=== PATIENT | male | born 1960 | race African-American/Black ===

== ENCOUNTER 2017-03-20 22:34 | Emergency (ER) | payer MEDICAID ==
[~2017-03-20] VITALS: Ht 188 cm; Wt 81.8 kg
[~2017-03-20 22:34] MED LIST: GABA-290 PO
[2017-03-21] MEDS ORDERED: ONDANSETRON HCL 4MG/2ML VIAL IV STA (00:51)
[2017-03-21] MEDS ORDERED: MORPHINE SULFATE 4 MG/ML CPJ (NOT FOR IM USE) IV STA (00:51)
[2017-03-21] MEDS ORDERED: MORPHINE SULFATE 4 MG/ML CPJ (NOT FOR IM USE) IV ONE (01:45)
[2017-03-21 01:47] LABS: BASOPHILS % 0.8 % (0.0-2.0); EOSINOPHILS % 2.7 % (0.0-5.0); HEMATOCRIT. 41.8 % (42.0-52.0); HEMOGLOBIN. 13.7 g/dL (14.0-18.0); LYMPHOCYTES % 16.2 % (20.0-50.0); MEAN CORPUSCULAR HEMOGLOBIN 27.3 pg (28.0-32.0); MEAN CORPUSCULAR HGB CONC 32.8 g/dL (31.0-37.0); MEAN CORPUSCULAR VOLUME 83.1 fL (80.0-94.0); MEAN PLATELET VOLUME 9.5 fl (7.4-10.4); MONOCYTES % 5.1 % (2.0-8.0); NEUTROPHILS % 75.2 % (40.0-76.0); PLATELET 284 x1000/uL (130-400); RED BLOOD CELL COUNT 5.03 mill/uL (4.7-6.1); WHITE BLOOD COUNT 11.5 x1000/uL (4.5-11.0)
[2017-03-21 01:51] LABS: INR 0.9; PROTHROMBIN TIME 9.3 sec
[2017-03-21 01:52] LABS: CHLORIDE 99 mEq/L (98-107); INDEX HEMOLYSI 1 (1-3); INDEX ICTERIC 1 (1-4); INDEX LIPEMIC 1 (1-3)
[2017-03-21 02:03] LABS: ALANINE AMINOTRANSFERASE 13 IU/L (13-61); ALBUMIN 3.4 g/dL (3.4-5.0); ANION GAP 14; CALCIUM 9.3 mg/dL (8.5-10.1); CARBON DIOXIDE 24 mEq/L (21-32); UREA NITROGEN BLOOD 10 mg/dL (7-21); eGFR > 60 mL/min (>60)
[2017-03-21] MEDS ORDERED: SODIUM CHLORIDE 0.9% 2,000 ML IV ONE (02:30)
[2017-03-21] MEDS ORDERED: KETOROLAC 30MG/ML VIAL IV ONE (03:30)
[2017-03-21 04:31] VITALS: BP 149/88
== END 2017-03-21 05:25 | disposition home or self-care (01) ==
LOC: ER 22:35
DX: T87.89 Other complications of amputation stump (principal); Y84.8 Other medical procedures as the cause of abnormal reaction of the patient, or of later complication, without mention of misadventure at the time of the procedure; Y92.098 Other place in other non-institutional residence as the place of occurrence of the external cause; Z89.512 Acquired absence of left leg below knee; M85.862 Other specified disorders of bone density and structure, left lower leg; R71.8 Other abnormality of red blood cells; E11.65 Type 2 diabetes mellitus with hyperglycemia; Z89.521 Acquired absence of right knee; F17.210 Nicotine dependence, cigarettes, uncomplicated
CPT/HCPCS: 36415; 73560; 80053; 82962; 85025; 85610; 85651; 93971; 96361; 96374; 96375; 96376; 99285; J1885; J2270; J2405; J7030; Z7610

== ENCOUNTER 2017-03-26 13:33 | Emergency (ER) | payer MEDICAID ==
[~2017-03-26] VITALS: Ht 175.3 cm; Wt 82.0 kg
[2017-03-26] MEDS ORDERED: HYDROCODONE/ACETAMINOPHEN 10/325MG TABLET PO ONE (15:15)
[2017-03-26] MEDS ORDERED: MORPHINE SULFATE 2 MG/ML CPJ (NOT FOR IM USE) IV ONE (16:15)
[2017-03-26 16:33] LABS: BASOPHILS % 0.6 % (0.0-2.0); HEMATOCRIT. 40.3 % (42.0-52.0); HEMOGLOBIN. 13.4 g/dL (14.0-18.0); LYMPHOCYTES % 13.6 % (20.0-50.0); MEAN CORPUSCULAR HEMOGLOBIN 27.2 pg (28.0-32.0); MEAN CORPUSCULAR HGB CONC 33.2 g/dL (31.0-37.0); MEAN CORPUSCULAR VOLUME 82.1 fL (80.0-94.0); MEAN PLATELET VOLUME 8.7 fl (7.4-10.4); MONOCYTES % 6.3 % (2.0-8.0); NEUTROPHILS % 77.5 % (40.0-76.0); PLATELET 379 x1000/uL (130-400); RED BLOOD CELL COUNT 4.91 mill/uL (4.7-6.1); RED CELL DISTRIBUTION WIDTH 15.8 % (11.6-14.6); WHITE BLOOD COUNT 19.7 x1000/uL (4.5-11.0)
[2017-03-26] MEDS ORDERED: CEPHALEXIN 500MG CAPSULE PO ONE (16:45)
[2017-03-26] MEDS ORDERED: KETOROLAC 60MG/2ML VIAL IM ONE (17:00)
[2017-03-26 17:12] VITALS: BP 145/78
[2017-03-26] MEDS ORDERED: KETOROLAC 30MG/ML VIAL IV ONE (17:15)
== END 2017-03-26 18:05 | disposition left against medical advice (07) ==
LOC: ER 13:33
DX: T87.89 Other complications of amputation stump (principal); R07.9 Chest pain, unspecified; E11.9 Type 2 diabetes mellitus without complications; R00.0 Tachycardia, unspecified; I10 Essential (primary) hypertension; Z89.512 Acquired absence of left leg below knee; Z89.611 Acquired absence of right leg above knee; D72.829 Elevated white blood cell count, unspecified; Y83.5 Amputation of limb(s) as the cause of abnormal reaction of the patient, or of later complication, without mention of misadventure at the time of the procedure; Y92.018 Other place in single-family (private) house as the place of occurrence of the external cause
CPT/HCPCS: 36415; 85025; 85651; 86140; 93005; 96374; 96375; 99285; J1885; J2270; Z7610

== ENCOUNTER 2017-03-27 14:50 | Emergency (ER) | payer MEDICAID ==
[~2017-03-27] VITALS: Ht 157.5 cm; Wt 82.0 kg
[~2017-03-27 14:50] MED LIST changes: +INSULIN DETEMIR UD 100 UNITS/ML SYR SUBCUT SCH
[2017-03-27] MEDS ORDERED: ONDANSETRON HCL 4MG/2ML VIAL IV STA (18:08)
[2017-03-27] MEDS ORDERED: MORPHINE SULFATE 4 MG/ML CPJ (NOT FOR IM USE) IV STA (18:08)
[2017-03-27] MEDS ORDERED: SODIUM CHLORIDE 0.9% 1000ML BAG (SEPSIS BOLUS) IV ONE (18:15)
[2017-03-27] MEDS ORDERED: PIPERACILLIN SODIUM/TAZOBACTAM 4.5 G in DEXT 5% WATER 100 ML IV ONE (18:15)
[2017-03-27] MEDS ORDERED: VANCOMYCIN 1 G PREMIX 200 ML IV ONE (18:15)
[2017-03-27 18:35] LABS: BASOPHILS % 0.9 % (0.0-2.0); EOSINOPHILS % 2.2 % (0.0-5.0); HEMATOCRIT. 40.4 % (42.0-52.0); HEMOGLOBIN. 13.1 g/dL (14.0-18.0); LYMPHOCYTES % 13.4 % (20.0-50.0); MEAN CORPUSCULAR HEMOGLOBIN 26.7 pg (28.0-32.0); MEAN CORPUSCULAR VOLUME 82.3 fL (80.0-94.0); MEAN PLATELET VOLUME 8.7 fl (7.4-10.4); MONOCYTES % 5.3 % (2.0-8.0); NEUTROPHILS % 78.2 % (40.0-76.0); PLATELET 401 x1000/uL (130-400); RED BLOOD CELL COUNT 4.91 mill/uL (4.7-6.1); RED CELL DISTRIBUTION WIDTH 15.9 % (11.6-14.6)
[2017-03-27 18:40] LABS: INR 0.9; PROTHROMBIN TIME 9.4 sec
[2017-03-27 18:48] LABS: CARBON DIOXIDE 26 mEq/L (21-32); CHLORIDE 100 mEq/L (98-107)
[2017-03-27] MEDS ORDERED: MORPHINE SULFATE 4 MG/ML CPJ (NOT FOR IM USE) IV ONE (20:15)
[2017-03-27] MEDS ORDERED: ONDANSETRON HCL 4MG/2ML VIAL IV PRN (21:30)
[2017-03-27] MEDS ORDERED: ACETAMINOPHEN 325MG TABLET PO PRN (21:30)
[2017-03-27] MEDS ORDERED: GUAIFENESIN 200MG/10ML SUGAR FREE UDC PO PRN (21:30)
[2017-03-27] MEDS ORDERED: DOCUSATE SODIUM 100MG CAPSULE PO PRN (21:30)
[2017-03-27] MEDS ORDERED: CLONIDINE 0.1MG TABLET PO PRN (21:30)
[2017-03-27] MEDS ORDERED: PIPERACILLIN/TAZ 3.375G PREMIX 50 ML IV SCH (21:30)
[2017-03-27] MEDS ORDERED: LORAZEPAM 2MG/ML CPJ IV PRN (21:30)
[2017-03-27] MEDS ORDERED: MAGNESIUM/ALUMINUM HYDROXIDE/SIMETHICONE 30ML UDC PO PRN (21:30)
[2017-03-27] MEDS ORDERED: VANCOMYCIN 1 G PREMIX 200 ML IV SCH (21:30)
[2017-03-27] MEDS ORDERED: DIPHENHYDRAMINE 50MG/ML VIAL IV PRN (21:30)
[2017-03-27] MEDS ORDERED: IPRATROPIUM/ALBUTEROL 0.5-3(2.5)MG/3ML NEB INH PRN (21:30)
[2017-03-27] MEDS ORDERED: LEVOFLOXACIN 500MG PREMIX 100 ML IV SCH (21:30)
[2017-03-27] MEDS ORDERED: NITROGLYCERIN 0.4MG TABLET SL SL PRN (21:30)
[2017-03-27] MEDS ORDERED: KETOROLAC 15MG/ML VIAL IV PRN (22:05)
[2017-03-27] MEDS ORDERED: ZOLPIDEM TARTRATE 5MG TABLET PO PRN (22:06)
[2017-03-27] MEDS ORDERED: DEXTROSE 50% WATER 50ML SYRINGE IV PRN (22:30)
[2017-03-27] MEDS ORDERED: NA PHOS,M-B/NA PHOS,DI-BA ENEMA 118ML PR PRN (22:30)
[2017-03-27 23:04] VITALS: BP 156/97
[2017-03-28] MEDS ORDERED: GABAPENTIN 300MG CAPSULE PO SCH (06:00)
[2017-03-28] MEDS ORDERED: INSULIN LISPRO 100 UNITS/ML SUBCUT SCH (08:20)
[2017-03-28] MEDS ORDERED: ZINC SULFATE 220 MG ( 50 ) CAPSULE PO SCH (09:00)
[2017-03-28] MEDS ORDERED: PANTOPRAZOLE SODIUM 40 MG/VIAL IV SCH (09:00)
[2017-03-28] MEDS ORDERED: METOPROLOL TARTRATE 25MG TABLET PO SCH (09:00)
[2017-03-28] MEDS ORDERED: BLOOD SUGAR DIAGNOSTIC STRIP TEST SCH (09:00)
== END 2017-03-27 23:16 | disposition left against medical advice (07) ==
LOC: ER 14:51
DX: T87.44 Infection of amputation stump, left lower extremity (principal); T87.43 Infection of amputation stump, right lower extremity; M86.8X6 Other osteomyelitis, lower leg; Y84.8 Other medical procedures as the cause of abnormal reaction of the patient, or of later complication, without mention of misadventure at the time of the procedure; Y92.098 Other place in other non-institutional residence as the place of occurrence of the external cause; E87.1 Hypo-osmolality and hyponatremia; I10 Essential (primary) hypertension; E44.1 Mild protein-calorie malnutrition; Z68.33 Body mass index [BMI] 33.0-33.9, adult; E11.65 Type 2 diabetes mellitus with hyperglycemia; F17.210 Nicotine dependence, cigarettes, uncomplicated; Z71.6 Tobacco abuse counseling; Z79.4 Long term (current) use of insulin
CPT/HCPCS: 36415; 71010; 73560; 73718; 80053; 83036; 83605; 85025; 85610; 87040; 87070; 87077; 87186; 87205; 93005; 96361; 96365; 96367; 96375; 96376; 99285; J1885; J2270; J2543; J3370; J7030; Z7610; J2405; J7060

== ENCOUNTER 2017-06-25 23:29 | Emergency (ER) | payer BC, MEDICAID ==
[~2017-06-25] VITALS: Ht 152.4 cm; Wt 84.0 kg
[~2017-06-25 23:29] MED LIST changes: -INSULIN DETEMIR UD 100 UNITS/ML SYR SUBCUT SCH
[2017-06-25 23:55] VITALS: BP 144/81
== END 2017-06-26 03:21 | disposition left against medical advice (07) ==
LOC: ER 06-26 03:02
DX: Z53.21 Procedure and treatment not carried out due to patient leaving prior to being seen by health care provider (principal)

== ENCOUNTER 2017-08-21 12:23 | Emergency (ER) | payer BC ==
[~2017-08-21] VITALS: Ht 188 cm; Wt 82.0 kg
[2017-08-21 12:41] VITALS: BP 135/85
== END 2017-08-21 18:30 | disposition left against medical advice (07) ==
LOC: ER 12:23
DX: Z04.8 Encounter for examination and observation for other specified reasons (principal); Z53.21 Procedure and treatment not carried out due to patient leaving prior to being seen by health care provider

== ENCOUNTER 2017-12-14 13:34 | Emergency (ER) | payer BC, MEDICAID ==
[~2017-12-14] VITALS: Ht 188 cm; Wt 82.0 kg
[2017-12-14 15:49] LABS: BASOPHILS % 0.7 % (0.0-2.0); HEMATOCRIT. 37.6 % (42.0-52.0); HEMOGLOBIN. 12.2 g/dL (14.0-18.0); LYMPHOCYTES % 8.1 % (20.0-50.0); MEAN CORPUSCULAR HEMOGLOBIN 26.5 pg (28.0-32.0); MEAN CORPUSCULAR VOLUME 81.8 fL (80.0-94.0); MEAN PLATELET VOLUME 9.3 fl (7.4-10.4); MONOCYTES % 5.1 % (2.0-8.0); NEUTROPHILS % 85.1 % (40.0-76.0); PLATELET 319 x1000/uL (130-400); RED CELL DISTRIBUTION WIDTH 14.9 % (11.6-14.6)
[2017-12-14 15:50] LABS: INR 0.9; PROTHROMBIN TIME 9.8 sec (9.4-11.6)
[2017-12-14 15:56] LABS: CARBON DIOXIDE 25 mEq/L (21-32); CHLORIDE 102 mEq/L (98-107); TROPONIN I < 0.02 ng/mL (0.00-0.04)
[2017-12-14] MEDS ORDERED: KETOROLAC 30MG/ML VIAL IV ONE (16:30)
[2017-12-14] MEDS ORDERED: VANCOMYCIN 1 G PREMIX 200 ML IV SCH (16:30)
[2017-12-14] MEDS ORDERED: CEFTRIAXONE 1 G PREMIX 50 ML IV ONE (16:30)
[2017-12-14 17:29] VITALS: BP 136/88
[2017-12-14] MEDS ORDERED: ACETAMINOPHEN WITH CODEINE 300/30MG TABLET PO ONE (17:30)
== END 2017-12-14 19:28 | disposition left against medical advice (07) ==
LOC: ER 15:34 → ENRESERV 18:55 → ER 19:28 → CANBEDREQ 12-15 03:37
DX: T87.40 Infection of amputation stump, unspecified extremity (principal); M86.9 Osteomyelitis, unspecified; R07.9 Chest pain, unspecified; E11.69 Type 2 diabetes mellitus with other specified complication; Z98.890 Other specified postprocedural states
CPT/HCPCS: 36415; 71045; 73560; 80053; 83605; 84484; 85025; 85610; 87040; 93005; 96365; 96367; 96375; 99285; J0696; J1885; J3370

== ENCOUNTER 2021-05-05 18:33 | Inpatient (IN) | payer MEDICAID ==
[~2021-05-05] VITALS: Ht 152.4 cm; Wt 81.6 kg
[2021-05-05] MEDS ORDERED: VANCOMYCIN 1 G PREMIX 200 ML IV ONE (20:45)
[2021-05-05] MEDS ORDERED: PIPERACILLIN/TAZ 3.375G PREMIX 50 ML IV ONE (20:45)
[2021-05-05] MEDS ORDERED: SODIUM CHLORIDE 0.9% 1,000 ML IV ONE (20:45)
[2021-05-05] MEDS ORDERED: SODIUM CHLORIDE 0.9% 1000ML BAG (SEPSIS BOLUS) IV ONE (20:45)
[2021-05-05 21:10] LABS: CLARITY URINE CLEAR (CLEAR); COLOR URINE YELLOW (YELLOW); KETONES URINE NEGATIVE (NEGATIVE); LEUKOCYTE ESTERASE URINE NEGATIVE (NEGATIVE); NITRITE URINE NEGATIVE (NEGATIVE); OCCULT BLOOD URINE NEGATIVE (NEGATIVE); PH URINE 5.5 (4.5-8.0); PROTEIN URINE TRACE (NEGATIVE); SPECIFIC GRAVITY URINE 1.016 (1.005-1.030)
[2021-05-05 21:49] LABS: BASOPHILS % 0.7 % (0.0-2.0); EOSINOPHILS % 1.9 % (0.0-5.0); HEMATOCRIT. 34.3 % (42.0-52.0); HEMOGLOBIN. 11.7 g/dL (14.0-18.0); LYMPHOCYTES % 23.2 % (20.0-50.0); MEAN CORPUSCULAR HEMOGLOBIN 27.8 pg (28.0-32.0); MEAN CORPUSCULAR VOLUME 81.7 fL (80.0-94.0); MEAN PLATELET VOLUME 8.4 fl (7.4-10.4); NEUTROPHILS % 67.2 % (40.0-76.0); PLATELET 226 x1000/uL (130-400); RED BLOOD CELL COUNT 4.19 mill/uL (4.7-6.1); RED CELL DISTRIBUTION WIDTH 14.9 % (11.6-14.6)
[2021-05-05 21:55] LABS: CHLORIDE 110 mEq/L (98-107)
[2021-05-05] MEDS ORDERED: FENTANYL CITRATE/PF 50MCG/ML 2ML VIAL IV ONE (22:00)
[2021-05-05 22:06] LABS: PROTHROMBIN TIME 10.3 sec (9.6-11.0)
[2021-05-05] MEDS ORDERED: IOHEXOL-300 100 ML BOTTLE ONE (23:27)
[2021-05-06] MEDS ORDERED: POTASSIUM CHLORIDE INJ 30 MEQ in DEXT 5%/0.9% NACL 1,000 ML IV ONE (00:15)
[2021-05-06] MEDS ORDERED: CLONIDINE 0.2MG TABLET PO PRN (03:00)
[2021-05-06 04:00] VITALS: BP 179/86
[2021-05-06] MEDS ORDERED: MORPHINE SULFATE 2 MG/ML CPJ (NOT FOR IM USE) IV PRN (04:15)
[2021-05-06] MEDS ORDERED: DEXTROSE 50% WATER 50ML SYRINGE IV PRN (04:15)
[2021-05-06] MEDS ORDERED: CLONIDINE 0.1MG TABLET PO PRN (04:15)
[2021-05-06 04:29] VITALS: BP 171/71
[2021-05-06] MEDS ORDERED: GLIP2.5T3 PO (04:45)
[2021-05-06] MEDS ORDERED: HYDR-4350 MT (04:45)
[2021-05-06] MEDS ORDERED: PIPERACILLIN/TAZOBACTAM 3.375 G/VIAL IV SCH (06:00)
[2021-05-06] MEDS ORDERED: PIPERACILLIN/TAZOBACTAM 3.375G in DEXT 5% WATER 50ML IV SCH (06:00)
[2021-05-06] MEDS ORDERED: BLOOD SUGAR DIAGNOSTIC STRIP TEST SCH (07:20)
[2021-05-06] MEDS ORDERED: INSULIN LISPRO 100 UNITS/ML SUBCUT SCH (07:50)
[2021-05-06] MEDS ORDERED: METFORMIN HCL 500MG TABLET PO SCH (07:50)
[2021-05-06 07:55] VITALS: BP 131/63
[2021-05-06] MEDS ORDERED: VANCOMYCIN 1 G PREMIX 200 ML IV SCH (08:00)
[2021-05-06] MEDS ORDERED: AMLODIPINE 10MG TABLET PO SCH (09:00)
[2021-05-06] MEDS ORDERED: LISINOPRIL 20MG TABLET PO SCH (09:00)
== END 2021-05-06 10:04 | disposition left against medical advice (07) | DRG 349 ==
LOC: ER 18:33 → 6WST 05-06 01:39 → EDBEDREQ 05-06 01:44 → EDBEDREQSVC 05-06 01:46 → ENRESERV 05-06 02:24
PROVIDERS: ADMIT Internal Medicine; ATTEND Internal Medicine
DX: T87.44 Infection of amputation stump, left lower extremity (principal); E43 Unspecified severe protein-calorie malnutrition; E87.8 Other disorders of electrolyte and fluid balance, not elsewhere classified; L02.416 Cutaneous abscess of left lower limb; E11.65 Type 2 diabetes mellitus with hyperglycemia; L03.116 Cellulitis of left lower limb; Z89.611 Acquired absence of right leg above knee; D64.9 Anemia, unspecified; E87.6 Hypokalemia; Z89.612 Acquired absence of left leg above knee; R53.81 Other malaise; Z53.29 Procedure and treatment not carried out because of patient's decision for other reasons; Y83.5 Amputation of limb(s) as the cause of abnormal reaction of the patient, or of later complication, without mention of misadventure at the time of the procedure; Y82.8 Other medical devices associated with adverse incidents; W05.0XXA Fall from non-moving wheelchair, initial encounter; Z79.899 Other long term (current) drug therapy; Y92.89 Other specified places as the place of occurrence of the external cause; Y93.89 Activity, other specified; Y99.8 Other external cause status; I10 Essential (primary) hypertension; Z71.6 Tobacco abuse counseling; Z68.35 Body mass index [BMI] 35.0-35.9, adult; F17.210 Nicotine dependence, cigarettes, uncomplicated
CPT/HCPCS: 36415; 71045; 73701; 80053; 81003; 82962; 83605; 84145; 84484; 85025; 93005; 99285; J2270; J2543; J3010; J3370; J3480; J7030; J7042; J7060; Q9967

== ENCOUNTER 2022-06-15 19:20 | Emergency (ER) | payer MEDICAID ==
[~2022-06-15] VITALS: Ht 167.6 cm; Wt 48.6 kg
[~2022-06-15 19:20] MED LIST changes: +GLIP2.5T3 PO; +HYDR-4350 MT
[2022-06-15 19:39] VITALS: BP 113/55
[2022-06-15] MEDS ORDERED: CEFTRIAXONE 1 G PREMIX 50 ML IV ONE (21:45)
[2022-06-15] MEDS ORDERED: VANCOMYCIN 1G PREMIX 200 ML IV SCH (21:45)
[2022-06-15] MEDS ORDERED: VANCOMYCIN 1G PREMIX 200 ML IV NR (22:00)
[2022-06-15] MEDS ORDERED: CEFTRIAXONE 1 G PREMIX 50 ML IV NR (22:00)
[2022-06-15] MEDS ORDERED: ACETAMINOPHEN 325MG TABLET PO ONE (22:45)
[2022-06-15] MEDS ORDERED: IBUPROFEN 400MG TABLET PO ONE (22:45)
[2022-06-15 22:51] LABS: CHLORIDE 101 mEq/L (98-107)
[2022-06-15 22:54] LABS: BASOPHILS % 0.8 % (0.0-2.0); HEMATOCRIT. 43.4 % (42.0-52.0); LYMPHOCYTES % 29.9 % (20.0-50.0); MEAN CORPUSCULAR HEMOGLOBIN 26.5 pg (28.0-32.0); MEAN CORPUSCULAR VOLUME 82.3 fL (80.0-94.0); MEAN PLATELET VOLUME 8.3 fl (7.4-10.4); MONOCYTES % 9.3 % (2.0-8.0); PLATELET 198 x1000/uL (130-400); RED BLOOD CELL COUNT 5.27 mill/uL (4.7-6.1); RED CELL DISTRIBUTION WIDTH 17.3 % (11.6-14.6)
[2022-06-16] MEDS ORDERED: SULF1TAB48 MT (00:14)
== END 2022-06-16 00:38 | disposition home or self-care (01) ==
LOC: ER 19:20
DX: L03.115 Cellulitis of right lower limb (principal); E11.9 Type 2 diabetes mellitus without complications; Z99.3 Dependence on wheelchair; Z89.511 Acquired absence of right leg below knee; Z89.512 Acquired absence of left leg below knee
CPT/HCPCS: 36415; 80053; 83605; 85025; 96365; 96368; 99284; J0696; J3370

== ENCOUNTER 2022-06-26 15:32 | Emergency (ER) | payer MEDICAID ==
[~2022-06-26] VITALS: Ht 188 cm; Wt 77.0 kg
[~2022-06-26 15:32] MED LIST changes: +SULF1TAB48 MT
[2022-06-26 15:38] VITALS: BP 126/66
== END 2022-06-26 20:05 | disposition left against medical advice (07) ==
LOC: ER 15:32
DX: Z53.21 Procedure and treatment not carried out due to patient leaving prior to being seen by health care provider (principal)